=== PATIENT | male | born 2000 | race Hispanic/Latino ===

== ENCOUNTER 2021-01-31 14:15 | Emergency (ER) | payer BC ==
[2021-01-31 15:58] LABS: Bilirubin Moderate (Negative); Blood, Urine Moderate (Negative); Clarity Clear (Clear); Glucose, Urine (Dipstick) Negative (Negative); Ketone, Urine Trace mg/dL (Negative); Leukocyte Negative (Negative); Nitrite Negative (Negative); Protein, Urine (Dipstick) > or equal to 300 mg/dL (Neg-Trace); Specific Gravity, Urine 1.025 (1.005-1.030)
[2021-01-31] MEDS ORDERED: Sodium Chloride 0.9% 1,000 ML ONE ×2 (16:05→17:18)
[2021-01-31] MEDS ORDERED: Sodium Chloride 0.9% 250 ML 250 ML ONE (16:06)
[2021-01-31] MEDS ORDERED: Azithromycin 500 MG VIAL ONE (16:06)
[2021-01-31 16:26] LABS: ALT (SGPT) 70 U/L (8-55); AST (SGOT) 179 U/L (10-45); Albumin 3.8 g/dL (3.5-5.0); Alkaline Phosphatase 73 U/L (50-130); Anion Gap 16 mmol/L (10-20); BUN (Urea Nitrogen) 15 mg/dL (8.4-21.0); Calc. Creatinine Clearance 0 mL/min (70-130); Calcium 8.8 mg/dL (7.8-10.44); Carbon Dioxide 24 mmol/L (22-29); Chloride 102 mmol/L (98-107); Globulin 3.5 g/dL (2.4-3.5); Glucose 102 mg/dL (70-105); Potassium 4.1 mmol/L (3.5-5.1); Protein, Total 7.3 g/dL (6.0-8.3); Sodium 138 mmol/L (136-145)
[2021-01-31 16:33] LABS: Bacteria/HPF 2+ HPF (None Seen); RBC/HPF 0-3 HPF (0-3); Squamous Epithelial 0-3 HPF (0-3); Transitional Epithelial 0-3 HPF (None Seen); WBC/HPF 0-3 HPF (0-3)
[2021-01-31 16:37] LABS: #Lymphocytes 0.7 thou/uL (1.20-3.40); #Monocytes 0.3 thou/uL (0.11-0.59); #Neutrophils 2.7 thou/uL (1.40-6.50); %Basophils 0.2 % (0.0-1.0); %Eosinophils 0.2 % (0.0-10.0); %Lymphocytes 19.5 % (28.0-48.0); %Monocytes 7.4 % (0.0-4.0); %Neutrophils 72.7 % (31.0-61.0); Hemoglobin 15.8 g/dL (14.0-18.0); Mean Corpuscular Hemoglobin 31.9 pg (25.0-35.0); Mean Corpuscular Volume 99.7 fL (78.0-98.0); Mean Platelet Volume 9.2 fL (7.4-10.4); Platelet Count 65 thou/uL (130-400); Platelet Morphology Comment Appears Decreased; Red Blood Cell (RBC) Count 4.97 mill/uL (4.00-5.20); White Blood Cell (WBC) Count 3.7 thou/uL (4.8-10.8)
[2021-01-31] MEDS ORDERED: Ondansetron PF 4 MG/2 ML Vial ONE (17:17)
[2021-01-31] MEDS ORDERED: Acetaminophen 500 MG TAB ONE (18:20)
== END 2021-01-31 18:20 | disposition home or self-care (01) ==
LOC: NAV ERS 14:15
DX: J18.9 Pneumonia, unspecified organism (principal); E86.9 Volume depletion, unspecified; R19.7 Diarrhea, unspecified; R11.2 Nausea with vomiting, unspecified; Q90.9 Down syndrome, unspecified
CPT/HCPCS: 71045; 80053; 81003; 81015; 83605; 85025; 96365; 96375; J0456; J2405; J7050

== ENCOUNTER 2021-02-02 18:10 | Emergency (ER) | payer BC ==
[2021-02-02] MEDS ORDERED: Sodium Chloride 0.9% 100 ML ONE (19:24)
[2021-02-02] MEDS ORDERED: Acetaminophen 650 MG Suppository ONE (19:24)
[2021-02-02] MEDS ORDERED: Sodium Chloride 0.9% 1,000 ML ONE ×2 (19:24→21:32)
[2021-02-02] MEDS ORDERED: cefTRIAXone\\ROCEPHIN 2 GM VIAL ONE (19:24)
[2021-02-02 19:38] LABS: Band 11 % (5-11); Hemoglobin 13.5 g/dL (14.0-18.0); Lymphocytes 20 % (28-48); MDiff Complete? YES; Mean Corpuscular HGB CONC 31.9 g/dL (32.0-36.0); Mean Corpuscular Hemoglobin 32.1 pg (25.0-35.0); Mean Platelet Volume 8.5 fL (7.4-10.4); Monocytes 4 % (0-4); Neutrophil 61 % (31-61); Platelet Count 80 thou/uL (130-400); Platelet Morphology Comment Appears Decreased; RBC Distribution Width 11.8 % (11.5-14.5); RBC Morphology Normal; Reactive Lymphocytes 4 % (0-10); White Blood Cell (WBC) Count 3.9 thou/uL (4.8-10.8)
[2021-02-02 19:41] LABS: ALT (SGPT) 214 U/L (8-55); AST (SGOT) 333 U/L (10-45); Albumin 3.4 g/dL (3.5-5.0); Alkaline Phosphatase 59 U/L (50-130); Anion Gap 15 mmol/L (10-20); BUN (Urea Nitrogen) 10 mg/dL (8.4-21.0); Bilirubin, Total 1.2 mg/dL (0.2-1.2); Calc. Creatinine Clearance 0 mL/min (70-130); Calcium 8.4 mg/dL (7.8-10.44); Carbon Dioxide 23 mmol/L (22-29); Chloride 107 mmol/L (98-107); Globulin 3.2 g/dL (2.4-3.5); Glucose 102 mg/dL (70-105); Potassium 4.3 mmol/L (3.5-5.1); Protein, Total 6.6 g/dL (6.0-8.3); Sodium 141 mmol/L (136-145)
[2021-02-02] MEDS ORDERED: Ondansetron PF 4 MG/2 ML Vial ONE (21:32)
[2021-02-02 22:13] LABS: SARS-CoV-2 NAA Rapid Test DETECTED (NotDetected)
[2021-02-03] MEDS ORDERED: Ibuprofen 100 MG/5 ML UDCUP ONE (00:10)
[2021-02-03] MEDS ORDERED: Guaifenesin DM 100-10/5 ML UDCUP ONE (00:10)
[2021-02-03] MEDS ORDERED: Sodium Chloride 0.9% 1,000 ML ONE (07:37)
== END 2021-02-03 07:25 | disposition short-term general hospital (02) ==
LOC: NAV ERS 18:10
DX: U07.1 COVID-19 (principal); J12.82 Pneumonia due to coronavirus disease 2019; E86.0 Dehydration; Q90.9 Down syndrome, unspecified
CPT/HCPCS: 0240U; 36415; 71045; 80053; 83605; 85025; 87040; 96365; 96375; J0696; J2405; J3490; J7050